=== PATIENT | female | born 1995 | race Caucasian/White ===

== ENCOUNTER 2017-10-31 16:14 | Inpatient (IN) ==
[2017-10-31] MEDS: METHYLDOPA 250 MG TABLET PO SCH (20:58)
[2017-10-31] MEDS: LABETALOL 100 MG TABLET PO SCH (20:58)
[2017-10-31] MEDS ORDERED: INFLUENZA VIRUS VACCINE 0.5 ML SYRINGE IM ONE (23:11)
[2017-10-31] MEDS: LACTATED RINGERS 1,000 ML IV SCH (23:45)
[2017-11-01] MEDS ORDERED: MEPERIDINE 50 MG/1 ML VIAL IV PRN (00:01)
[2017-11-01] MEDS ORDERED: BUTORPHANOL 2 MG/ML VIAL IV PRN (00:01)
[2017-11-01] MEDS ORDERED: ONDANSETRON 4 MG/2 ML VIAL IV PRN ×2 (00:01→18:27)
[2017-11-01 00:10] LABS: Basophils % 0.2 % (0.0-0.8); Eosinophils # 0.1 10*3/uL (0.0-0.87); Eosinophils % 1.1 % (0.00-10.9); Hematocrit 34.8 VOL% (35.7-47.0); Hemoglobin 11.9 GM/DL (12.0-16.0); Immature Granulocytes % 0.6 %; Immature Granulocytes Absolute 0.06 #; Lymphocytes # 1.7 10*3/uL (1.4-4.0); Lymphocytes % 17.4 % (21.3-54.2); Mean Corpuscular HGB Conc 34.2 GM/DL (32-36); Mean Corpuscular Hemoglobin 28 PG (27-34); Mean Corpuscular Volume 82.7 FL (87-102); Mean Platelet Volume 10.6 FL (9.6-12.0); Monocytes # 0.8 10*3/uL (0.11-0.8); Monocytes % 8.2 % (1.7-12.7); Neutrophils # 7.2 10*3/uL (1.4-7.4); Neutrophils % 72.5 % (38.7-73.9); Platelet Count 258 T/CUMM (130-400); Red Blood Count 4.21 MC/CUMM (3.8-5.5); Red Cell Distribution Width 12.9 % (9.3-17.3); White Blood Count 9.9 T/CUMM (4-12)
[2017-11-01 00:18] LABS: INR 0.9; PT Patient Result 9.6 SECS; Partial Thromboplastin Time 27.5 SECS (0-40)
[2017-11-01 00:37] LABS: Albumin 2.7 G/DL (3.4-5.0); Bilirubin,Total 0.5 MG/DL (0.2-1.0); Calcium 8.6 MG/DL (8.5-10.1); Osmolality,Calculated 277.4 MOS/KG (273-304); Potassium 4.1 MMOL/L (3.5-5.1); Total Protein 5.9 G/DL (6.4-8.3); Uric Acid 5.9 MG/DL (2.6-6.0)
[2017-11-01] MEDS ORDERED: OXYTOCIN/LR 20 UNIT/1,000 ML BAG IV SCH (07:00)
[2017-11-01] MEDS: LACTATED RINGERS 1,000 ML IV SCH (07:18)
[2017-11-01] MEDS ORDERED: hydrOXYzine HCL 25 MG/1 ML VIAL IM PRN (07:49)
[2017-11-01] MEDS ORDERED: ePHEDrine 50 MG/ML AMP IV PRN (07:49)
[2017-11-01] MEDS ORDERED: LACTATED RINGERS 1,000 ML IV ONE (07:49)
[2017-11-01] MEDS ORDERED: CITRIC ACID/SODIUM CITRATE 30 ML UDCUP PO ONE (07:49)
[2017-11-01] MEDS ORDERED: PROMETHAZINE 25 MG/1 ML VIAL IM ONE (07:49)
[2017-11-01] MEDS ORDERED: diphenhydrAMINE 50 MG/1 ML VIAL IV PRN (07:49)
[2017-11-01] MEDS ORDERED: ONDANSETRON 4 MG/2 ML VIAL IV ONE (07:49)
[2017-11-01] MEDS ORDERED: FAMOTIDINE 20 MG/2 ML VIAL IV ONE (07:49)
[2017-11-01] MEDS ORDERED: fentaNYL 2 MCG/ROPIV 0.2% EPID 150 ML EPIDURAL SCH (08:00)
[2017-11-01] MEDS: LABETALOL 100 MG TABLET PO SCH ×2 (09:33→21:59)
[2017-11-01] MEDS: METHYLDOPA 250 MG TABLET PO SCH (09:33)
[2017-11-01 12:20] LABS: Apearance,Urine CLEAR (Clear); Bilirubin,Urine Negative (Negative); Blood, Urine Negative (Negative); Glucose,Urine (UA) Negative (Negative); Ketones,Urine Negative (Negative); Nitrite,Urine Negative (Negative); Protein,Urine Negative; RBC,Urine 1 /HPF (0-4); Urine Color Straw (Yellow); Urine Specific Gravity 1.004 (1.001-1.035); Urine Urobilinogen < 2.0 EU/DL (0.2-1.0); WBC,Urine <1 /HPF (0-6)
[2017-11-01] MEDS ORDERED: HYDROCORTISONE 2.5% RECTAL CREAM 30 GM TUBE TOP PRN (18:27)
[2017-11-01] MEDS ORDERED: ACETAMINOPHEN 325 MG TABLET PO PRN (18:27)
[2017-11-01] MEDS ORDERED: oxyCODONE/ACETAMINOPHEN 5-325 MG TABLET PO PRN (18:27)
[2017-11-01] MEDS ORDERED: OXYTOCIN/LR 20 UNIT/1,000 ML BAG IV ONE (18:27)
[2017-11-01] MEDS ORDERED: LANOLIN 50% CREAM 0.3 OZ TUBE TOP PRN (18:27)
[2017-11-01] MEDS ORDERED: MEASLES/MUMPS/RUBELLA VACCINE 0.5 ML VIAL SUBCUT ONE (18:27)
[2017-11-01] MEDS ORDERED: DIPH/TET/ACEL PERT BOOSTER VACCINE 0.5 ML VIAL IM ONE (18:27)
[2017-11-01] MEDS ORDERED: BISACODYL 10 MG SUPP RECTAL PRN (18:27)
[2017-11-01] MEDS ORDERED: WITCH HAZEL PADS 100/JAR TOP PRN (18:27)
[2017-11-01] MEDS ORDERED: RHO(D) IMMUNE GLOBULIN 300 MCG SYRINGE IM ONE (18:27)
[2017-11-01] MEDS ORDERED: BENZOCAINE 20%/MENTHOL 0.5% SPRAY 56 GM CAN TOP PRN (18:27)
[2017-11-01] MEDS ORDERED: MORPHINE 10 MG/10 ML VIAL ONE (18:37)
[2017-11-01] MEDS ORDERED: MIDAZOLAM 2 MG/2 ML VIAL ONE (18:37)
[2017-11-01] MEDS ORDERED: METHYLDOPA 500 MG TABLET PO SCH (21:13)
[2017-11-01] MEDS ORDERED: LABETALOL 100 MG TABLET PO SCH (21:13)
[2017-11-01] MEDS: oxyCODONE/ACETAMINOPHEN 5-325 MG TABLET PO PRN (21:19)
[2017-11-01] MEDS: diphenhydrAMINE 50 MG/1 ML VIAL IV PRN (21:59)
[2017-11-02] MEDS: diphenhydrAMINE 50 MG/1 ML VIAL IV PRN (01:55)
[2017-11-02] MEDS ORDERED: ceFAZolin 1,000 MG in SYRINGE 1 EACH IV SCH (02:00)
[2017-11-02] MEDS: DOCUSATE SODIUM 100 MG CAPSULE PO SCH ×3 (02:16→21:46)
[2017-11-02 06:03] LABS: Basophils % 0.2 % (0.0-0.8); Eosinophils # 0.1 10*3/uL (0.0-0.87); Eosinophils % 0.9 % (0.00-10.9); Hematocrit 31.1 VOL% (35.7-47.0); Hemoglobin 10.4 GM/DL (12.0-16.0); Immature Granulocytes % 0.3 %; Immature Granulocytes Absolute 0.04 #; Lymphocytes # 1.6 10*3/uL (1.4-4.0); Lymphocytes % 13.4 % (21.3-54.2); Mean Corpuscular HGB Conc 33.4 GM/DL (32-36); Mean Corpuscular Hemoglobin 28 PG (27-34); Mean Corpuscular Volume 83.4 FL (87-102); Mean Platelet Volume 10.1 FL (9.6-12.0); Monocytes % 8.7 % (1.7-12.7); Neutrophils # 9.1 10*3/uL (1.4-7.4); Neutrophils % 76.5 % (38.7-73.9); Platelet Count 194 T/CUMM (130-400); Red Blood Count 3.73 MC/CUMM (3.8-5.5); Red Cell Distribution Width 12.9 % (9.3-17.3); White Blood Count 11.8 T/CUMM (4-12)
[2017-11-02] MEDS: MULTIVITAMIN (PRENATAL) TABLET PO SCH (09:43)
[2017-11-02] MEDS: SIMETHICONE CHEW 80 MG TABLET PO PRN ×2 (09:43→21:47)
[2017-11-02] MEDS: MAGNESIUM HYDROXIDE SUSP 30 ML UDCUP PO PRN ×2 (09:43→21:46)
[2017-11-02] MEDS: IBUPROFEN 800 MG TABLET PO PRN ×2 (10:48→21:47)
[2017-11-02] MEDS ORDERED: SERTRALINE 50 MG TABLET PO SCH (11:00)
[2017-11-02] MEDS: oxyCODONE/ACETAMINOPHEN 5-325 MG TABLET PO PRN (21:48)
[2017-11-03] MEDS: IBUPROFEN 800 MG TABLET PO PRN (08:03)
[2017-11-03] MEDS: oxyCODONE/ACETAMINOPHEN 5-325 MG TABLET PO PRN (08:04)
[2017-11-03] MEDS ORDERED: SERTRALINE 25 MG TABLET PO SCH (09:00)
[2017-11-03] MEDS ORDERED: METHYLDOPA 250 MG TABLET PO SCH (09:30)
[2017-11-03] MEDS: DOCUSATE SODIUM 100 MG CAPSULE PO SCH (09:45)
[2017-11-03] MEDS: SIMETHICONE CHEW 80 MG TABLET PO PRN (09:46)
[2017-11-03] MEDS: MULTIVITAMIN (PRENATAL) TABLET PO SCH (09:46)
[2017-11-03] MEDS: MAGNESIUM HYDROXIDE SUSP 30 ML UDCUP PO PRN (09:46)
[2017-11-03 11:36] VITALS: BP 135/81
== END 2017-11-03 15:00 | disposition home or self-care (01) | DRG 765 ==
LOC: N.LDOUT 16:14 → N.LD 16:26 → N.OB 11-01 21:00
PROVIDERS: ADMIT Specialist; ATTEND Specialist
PROC: LDCSECT (ICD-10-PCS; 2017-11-01 17:00)